=== PATIENT | female | born 1940 | race Caucasian/White ===

== ENCOUNTER → 2016-07-23 | Outpatient (CLI) | payer OTHER ==
[~2016-07-23] MED LIST: ASPI-515 PO; CYAN250013 PO; IMIP10TA2 PO; LISI-170 PO; METF500T4 PO; MULT-82 PO; OXYC-302 PO; SIMV20TA3 PO; SIMV5TAB5 PO
[2016-07-23 14:23] LABS: BLOOD UREA NITROGEN 28 mg/dL (7-18)
[2016-07-23 14:27] LABS: ASPARTATE AMINO TRANSFERASE 35 U/L (15-37)
== END | disposition home or self-care (01) ==
LOC: STAR 12:48
PROVIDERS: ATTEND Orthopaedic Surgery
DX: Z01.810 Encounter for preprocedural cardiovascular examination (principal); S09.8XXA Other specified injuries of head, initial encounter; X58.XXXA Exposure to other specified factors, initial encounter; Y93.89 Activity, other specified; Y92.89 Other specified places as the place of occurrence of the external cause; Y99.8 Other external cause status
CPT/HCPCS: 36415; 80053; 93005

== ENCOUNTER 2016-07-27 13:30 | Observation (INO) | payer OTHER ==
[~2016-07-27] VITALS: Ht 170.2 cm; Wt 108.0 kg
[2016-07-27] MEDS ORDERED: FENTANYL PF 100 MCG/2ML ONE (14:15)
[2016-07-27] MEDS ORDERED: ROPIvacaine/PF 0.5%, 20 ML ONE (15:07)
[2016-07-27] MEDS ORDERED: DEXAMETHASONE 4 MG/ML, 1ML ONE (15:45)
[2016-07-27] MEDS ORDERED: PROPOFOL 10 MG/ML, 20ML ONE (15:45)
[2016-07-27] MEDS ORDERED: ONDANSETRON 2MG/ML, 2ML ONE (15:45)
[2016-07-27] MEDS ORDERED: CEFAZOLIN 1,000 MG ONE (15:45)
[2016-07-27] MEDS ORDERED: PHENYLEPHRINE 10 MG/ML ONE (15:45)
[2016-07-27] MEDS ORDERED: FENTANYL PF 100 MCG/2ML IV PRN (18:30)
[2016-07-27] MEDS ORDERED: OXYcodone 5 MG/5 ML ORAL.SOL UDC PO PRN (18:30)
[2016-07-27] MEDS ORDERED: ACETAMINOPHEN 325 MG TABLET PO PRN (18:30)
[2016-07-27] MEDS ORDERED: HYDROmorphone 1 MG/ML, 1ML IV PRN (18:30)
[2016-07-27] MEDS ORDERED: PROMETHAZINE 25 MG/ML, 1ML IV PRN (18:30)
[2016-07-27] MEDS ORDERED: METOPROLOL 1 MG/ML, 5ML IV PRN (18:30)
[2016-07-27] MEDS ORDERED: hydrALAzine 20 MG/ML, 1ML IV PRN (18:30)
[2016-07-27 21:30] VITALS: BP 152/65
[2016-07-27 22:00] VITALS: BP 152/65
[2016-07-27] MEDS ORDERED: LISINOPRIL 20 MG TABLET PO SCH (22:21)
[2016-07-27] MEDS ORDERED: SIMVASTATIN 20 MG TABLET PO SCH (22:22)
[2016-07-27] MEDS ORDERED: IMIPRAMINE MC SCH (22:30)
[2016-07-27] MEDS ORDERED: OXYcodone/APAP 5/325MG TABLET PO PRN (22:30)
[2016-07-27] MEDS ORDERED: METFORMIN MC SCH (22:30)
[2016-07-27] MEDS ORDERED: CYANOCOBALAMIN MC SCH (22:30)
[2016-07-27] MEDS ORDERED: KETOROLAC 30 MG/1 ML IV SCH (22:30)
[2016-07-27] MEDS ORDERED: PROMETHAZINE 25 MG/ML, 1ML IM PRN (22:30)
[2016-07-27] MEDS ORDERED: morphine SULFATE 10 MG/ML, 1ML IV PRN (22:30)
[2016-07-27] MEDS ORDERED: ONDANSETRON 2MG/ML, 2ML IV PRN (22:30)
[2016-07-28] VITALS: BP 158/70
[2016-07-28] MEDS ORDERED: MULTIVITAMIN 1 TABLET PO SCH (09:00)
[2016-07-29] MEDS ORDERED: ASPIRIN 81 MG TABLET EC PO SCH (06:00)
== END 2016-07-27 23:45 | disposition home or self-care (01) ==
LOC: OUT 13:30 → 4NOR 21:34 → OUT 21:44 → 4NOR 21:44
PROVIDERS: ADMIT Orthopaedic Surgery; ATTEND Orthopaedic Surgery
DX: S52.572A Other intraarticular fracture of lower end of left radius, initial encounter for closed fracture (principal); S63.512A Sprain of carpal joint of left wrist, initial encounter; W18.30XA Fall on same level, unspecified, initial encounter; Y93.89 Activity, other specified; Y92.89 Other specified places as the place of occurrence of the external cause; Y99.8 Other external cause status
CPT/HCPCS: 25609; 73100; 76001; 96374; C1713; G0378; J0690; J1100; J1885; J2370; J2405; J2704; J2795; J3010

== ENCOUNTER → 2017-02-25 | Outpatient (CLI) | payer OTHER ==
[~2017-02-25] MED LIST changes: +ALEN70TA5 PO; +FLUO20CA8 PO; +IMIP50TA3 PO; +MULT-224 PO; -MULT-82 PO
[2017-02-25 11:23] LABS: ASPARTATE AMINO TRANSFERASE 28 U/L (15-37); BLOOD UREA NITROGEN 32 mg/dL (7-18)
== END | disposition home or self-care (01) ==
LOC: STAR 09:48
PROVIDERS: ATTEND Orthopaedic Surgery
DX: Z01.818 Encounter for other preprocedural examination (principal); T84.498D Other mechanical complication of other internal orthopedic devices, implants and grafts, subsequent encounter; S52.592D Other fractures of lower end of left radius, subsequent encounter for closed fracture with routine healing; X58.XXXD Exposure to other specified factors, subsequent encounter
CPT/HCPCS: 36415; 80053; 93005

== ENCOUNTER 2017-03-08 06:10 | Day surgery (SDC) | payer OTHER ==
[2017-02-25 10:19] VITALS: BP 109/71
[~2017-03-08] VITALS: Ht 170.2 cm; Wt 105.6 kg
[2017-03-08] MEDS ORDERED: LACTATED RINGERS 1,000 ML IV SCH (06:26)
[2017-03-08 06:27] VITALS: BP 109/71
[2017-03-08] MEDS ORDERED: LIDOCAINE 1%, 2ML SQ PRN (06:30)
[2017-03-08] MEDS ORDERED: BUPIVACAINE/PF 0.5% ONE (06:53)
[2017-03-08] MEDS ORDERED: MIDAZOLAM 1 MG/ML, 2ML ONE (07:21)
[2017-03-08] MEDS ORDERED: FENTANYL PF 100 MCG/2ML ONE (07:21)
[2017-03-08] MEDS ORDERED: PROPOFOL 10 MG/ML, 20ML ONE (07:22)
[2017-03-08] MEDS ORDERED: PHENYLEPHRINE 10 MG/ML ONE (07:23)
[2017-03-08] MEDS ORDERED: CEFAZOLIN 1,000 MG ONE ×2 (07:24)
[2017-03-08] MEDS ORDERED: DEXAMETHASONE 4 MG/ML, 5ML ONE (07:40)
[2017-03-08] MEDS ORDERED: ONDANSETRON 2MG/ML, 2ML ONE (07:40)
[2017-03-08] MEDS ORDERED: HYDROmorphone 1 MG/ML, 1ML ONE (08:19)
[2017-03-08] MEDS ORDERED: PROMETHAZINE 25 MG/ML, 1ML IV PRN (09:00)
[2017-03-08] MEDS ORDERED: hydrALAzine 20 MG/ML, 1ML IV PRN (09:00)
[2017-03-08] MEDS ORDERED: HYDROmorphone 1 MG/ML, 1ML IV PRN (09:00)
[2017-03-08] MEDS ORDERED: LABETALOL 5MG/ML, 20ML IV PRN (09:00)
[2017-03-08] MEDS ORDERED: ACETAMINOPHEN 325 MG TABLET PO PRN (09:00)
[2017-03-08] MEDS ORDERED: ONDANSETRON 2MG/ML, 2ML IVPush PRN (09:00)
[2017-03-08] MEDS ORDERED: OXYcodone 5 MG/5 ML ORAL.SOL UDC PO PRN (09:00)
[2017-03-08] MEDS ORDERED: FENTANYL PF 100 MCG/2ML IV PRN (09:00)
[2017-03-08] MEDS ORDERED: MEPERIDINE/PF 25MG/0.5ML IVPush PRN (09:00)
[2017-03-08] MEDS ORDERED: OXYcodone 5 MG/5 ML ORAL.SOL UDC ONE (09:18)
[2017-03-08] MEDS ORDERED: ACETAMINOPHEN 650 MG/20.3 ML UDC ONE (09:18)
== END 2017-03-08 13:35 ==
LOC: OUT 06:10
PROVIDERS: ATTEND Orthopaedic Surgery
DX: S66.311A Strain of extensor muscle, fascia and tendon of left index finger at wrist and hand level, initial encounter (principal); I10 Essential (primary) hypertension; E78.5 Hyperlipidemia, unspecified; E11.9 Type 2 diabetes mellitus without complications; Z88.1 Allergy status to other antibiotic agents; X58.XXXA Exposure to other specified factors, initial encounter; Y93.89 Activity, other specified; Y92.89 Other specified places as the place of occurrence of the external cause; Y99.8 Other external cause status
CPT/HCPCS: 20680; 25301; 73100; 76000; 82962; J0690; J1100; J1170; J2250; J2370; J2405; J2704; J3010; J3490; J7120

== ENCOUNTER → 2017-09-01 | Outpatient (CLI) | payer OTHER | END | disposition home or self-care (01) | LOC: RAD 10:54 | PROVIDERS: ATTEND Family Medicine | DX: M25.551 Pain in right hip (principal) ==

== ENCOUNTER 2017-09-08 09:31 | Emergency (ER) | payer OTHER ==
[~2017-09-08] VITALS: Ht 170.2 cm; Wt 105.0 kg
[2017-09-08 09:42] VITALS: BP 122/71
[2017-09-08 10:00] LABS: BASOPHILS # (AUTO) 0.01 x10^3/uL (0-0.1); BASOPHILS % (AUTO) 0 % (0-1); EOSINOPHILS % (AUTO) 0 % (1-7); LYMPHOCYTES # (AUTO) 0.75 x10^3/uL (1-3.4); LYMPHOCYTES % (AUTO) 7 % (22-44); MD NO; MEAN CORPUSCULAR HEMOGLOBIN 32.8 pg (27.0-34.8); MEAN CORPUSCULAR HGB CONC 34.1 g/dL (32.4-35.8); MEAN CORPUSCULAR VOLUME 96.3 fL (80-100); MEAN PLATELET VOLUME 8.1 fL (7.4-10.4); MONOCYTES % (AUTO) 4 % (2-9); NEUTROPHILS # (AUTO) 10.13 x10^3/uL (1.8-6.8); NEUTROPHILS % (AUTO) 89 % (42-75); PLATELET COUNT 197 x10^3/uL (130-400); RED BLOOD COUNT 4.56 x10^6/uL (3.82-5.3); RED CELL DISTRIBUTION WIDTH 12.1 % (9.6-15.2)
[2017-09-08 10:08] LABS: ALBUMIN 3.5 g/dL (3.4-5.0); ANION GAP 9 mmol/L (5-15); CALCIUM 9.1 mg/dL (8.5-10.1); CHLORIDE 99 mmol/L (98-107)
[2017-09-08 10:23] LABS: ALANINE AMINOTRANSFERASE 39 U/L (12-78); ALKALINE PHOSPHATASE 75 U/L (45-117); BILIRUBIN,TOTAL 0.6 mg/dL (0.2-1.0); CREATINE KINASE, TOTAL 1089 U/L (26-192); CREATININE 1.48 mg/dL (0.55-1.02); TOTAL PROTEIN 7.6 g/dL (6.4-8.2)
== END 2017-09-08 12:30 | disposition home or self-care (01) ==
LOC: ED 12:26
DX: R53.1 Weakness (principal); I12.9 Hypertensive chronic kidney disease with stage 1 through stage 4 chronic kidney disease, or unspecified chronic kidney disease; N18.2 Chronic kidney disease, stage 2 (mild); E11.22 Type 2 diabetes mellitus with diabetic chronic kidney disease; W06.XXXA Fall from bed, initial encounter; Y93.89 Activity, other specified; Y92.89 Other specified places as the place of occurrence of the external cause; Y99.8 Other external cause status
CPT/HCPCS: 36415; 71045; 80053; 82550; 85025; 93005; 99285

== ENCOUNTER 2017-09-20 17:29 | Inpatient (IN) | payer OTHER ==
[~2017-09-20] VITALS: Ht 170.2 cm; Wt 113.5 kg
[2017-09-20] MEDS ORDERED: VANCOMYCIN PER PHARMACY MC PRN ×2 (18:30→23:00)
[2017-09-20] MEDS ORDERED: AMPICILLIN/SULBACTAM 3 GM in SODIUM CHLORIDE 0.9% 100 ML IV ONE (18:30)
[2017-09-20 18:47] LABS: BASOPHILS # (AUTO) 0.04 x10^3/uL (0-0.1); BASOPHILS % (AUTO) 0 % (0-1); EOSINOPHILS # (AUTO) 0.34 x10^3/uL (0-0.4); EOSINOPHILS % (AUTO) 3 % (1-7); LYMPHOCYTES # (AUTO) 2.28 x10^3/uL (1-3.4); LYMPHOCYTES % (AUTO) 21 % (22-44); MD NO; MEAN CORPUSCULAR HGB CONC 33.7 g/dL (32.4-35.8); MEAN PLATELET VOLUME 7.6 fL (7.4-10.4); MONOCYTES # (AUTO) 0.83 x10^3/uL (0.2-0.8); MONOCYTES % (AUTO) 8 % (2-9); NEUTROPHILS # (AUTO) 7.16 x10^3/uL (1.8-6.8); NEUTROPHILS % (AUTO) 67 % (42-75); PLATELET COUNT 311 x10^3/uL (130-400); RED BLOOD COUNT 4.48 x10^6/uL (3.82-5.3); RED CELL DISTRIBUTION WIDTH 12.2 % (9.6-15.2)
[2017-09-20] MEDS ORDERED: VANCOMYCIN 2,000 MG in SODIUM CHLORIDE 0.9% 500 ML IV ONE (19:00)
[2017-09-20] MEDS ORDERED: SODIUM CHLORIDE FLUSH 10ML SYR IVF ONE (19:00)
[2017-09-20 19:07] LABS: ALBUMIN 3.2 g/dL (3.4-5.0); ANION GAP 6 mmol/L (5-15); CALCIUM 9.8 mg/dL (8.5-10.1); CHLORIDE 102 mmol/L (98-107)
[2017-09-20 19:10] LABS: ALANINE AMINOTRANSFERASE 37 U/L (12-78); CREATININE 1.18 mg/dL (0.55-1.02)
[2017-09-20 19:12] LABS: ALKALINE PHOSPHATASE 93 U/L (45-117); BILIRUBIN,TOTAL 0.3 mg/dL (0.2-1.0)
[2017-09-20 21:30] VITALS: BP 130/80
[2017-09-20] MEDS ORDERED: hydrALAzine 20 MG/ML, 1ML IVPush PRN (22:30)
[2017-09-20] MEDS ORDERED: POLYETHYLENE GLYCOL 17 GM PACKET PO PRN (22:30)
[2017-09-20] MEDS ORDERED: ONDANSETRON ODT 4 MG PO PRN (22:30)
[2017-09-20] MEDS ORDERED: morphine SULFATE 10 MG/ML, 1ML IVPush PRN (22:30)
[2017-09-20] MEDS ORDERED: DOCUSATE 100 MG CAPSULE PO PRN (22:30)
[2017-09-20] MEDS ORDERED: OXYcodone IR 5MG TABLET PO PRN (22:30)
[2017-09-20] MEDS ORDERED: ONDANSETRON 2MG/ML, 2ML IVPush PRN (22:30)
[2017-09-20] MEDS ORDERED: BISACODYL 10 MG SUPP PR PRN (22:30)
[2017-09-20] MEDS ORDERED: PROMETHAZINE 25 MG/ML, 1ML IM PRN (22:30)
[2017-09-20] MEDS ORDERED: ACETAMINOPHEN 325 MG TABLET PO PRN (22:30)
[2017-09-20] MEDS ORDERED: PHARMACOKINETIC CONSULTATION MC ONE (23:00)
[2017-09-20] MEDS ORDERED: PHARMACOKINETIC MONITORING MC PRN (23:00)
[2017-09-20] MEDS ORDERED: SODIUM CHLORIDE 0.9% 1,000 ML IV SCH (23:00)
[2017-09-20 23:16] LABS: FREE T4 (FREE THYROXINE) 1.17 ng/dL (0.76-1.46); THYROID STIMULATING HORMONE 1.73 mIU/L (0.358-3.740)
[2017-09-20 23:21] LABS: HEMOGLOBIN A1C 6.8 % (4.2-6.3)
[2017-09-20] MEDS: HEPARIN 5,000 UNITS/ML, 1ML SQ SCH (23:54)
[2017-09-21] MEDS: AMPICILLIN/SULBACTAM 3 GM in SODIUM CHLORIDE 0.9% 100 ML IV SCH ×4 (02:05→20:20)
[2017-09-21 02:17] VITALS: BP 145/71
[2017-09-21 05:02] LABS: BASOPHILS # (AUTO) 0.02 x10^3/uL (0-0.1); BASOPHILS % (AUTO) 0 % (0-1); EOSINOPHILS # (AUTO) 0.32 x10^3/uL (0-0.4); EOSINOPHILS % (AUTO) 3 % (1-7); LYMPHOCYTES # (AUTO) 1.74 x10^3/uL (1-3.4); LYMPHOCYTES % (AUTO) 18 % (22-44); MD NO; MEAN CORPUSCULAR HEMOGLOBIN 32.3 pg (27.0-34.8); MEAN CORPUSCULAR HGB CONC 33.3 g/dL (32.4-35.8); MEAN CORPUSCULAR VOLUME 96.9 fL (80-100); MEAN PLATELET VOLUME 7.6 fL (7.4-10.4); MONOCYTES # (AUTO) 0.67 x10^3/uL (0.2-0.8); MONOCYTES % (AUTO) 7 % (2-9); NEUTROPHILS # (AUTO) 6.73 x10^3/uL (1.8-6.8); NEUTROPHILS % (AUTO) 71 % (42-75); PLATELET COUNT 287 x10^3/uL (130-400); RED BLOOD COUNT 4.12 x10^6/uL (3.82-5.3); RED CELL DISTRIBUTION WIDTH 11.8 % (9.6-15.2)
[2017-09-21 05:12] LABS: ALBUMIN 2.7 g/dL (3.4-5.0); ANION GAP 7 mmol/L (5-15); CALCIUM 8.7 mg/dL (8.5-10.1); CHLORIDE 104 mmol/L (98-107)
[2017-09-21 05:16] LABS: ALANINE AMINOTRANSFERASE 31 U/L (12-78); ALKALINE PHOSPHATASE 85 U/L (45-117); BILIRUBIN,TOTAL 0.3 mg/dL (0.2-1.0); CHOL/HDL RATIO 2.4; CHOLESTEROL, TOTAL 101 mg/dL (140-239); CREATININE 1.03 mg/dL (0.55-1.02); HDL CHOL % 42 % (28-40); HDL CHOLESTEROL (DIRECT) 42 mg/dL (40-60); LDL CHOLESTEROL,CALCULATED 32 mg/dL (54-169); LDL/HDL RATIO 0.8 (0.5-3.0); TOTAL PROTEIN 6.9 g/dL (6.4-8.2); TRIGLYCERIDES 135 mg/dL (50-200); VLDL CHOLESTEROL 27 mg/dL (0-25)
[2017-09-21] MEDS: ALENDRONATE 70 MG TABLET PO SCH (06:24)
[2017-09-21] MEDS: INSULIN LISPRO 100 UNITS/ML, PEN SQ-INSULIN SCH ×4 (06:27→20:25)
[2017-09-21 07:23] VITALS: BP 163/80
[2017-09-21 08:06] LABS: MICROSCOPIC NOT IND
[2017-09-21 08:09] LABS: CULTURE INDICATED? NO
[2017-09-21] MEDS: LISINOPRIL 20 MG TABLET PO SCH ×2 (09:29→20:21)
[2017-09-21] MEDS: FLUOXETINE HCL 20 MG CAPSULE PO SCH (09:29)
[2017-09-21] MEDS: HEPARIN 5,000 UNITS/ML, 1ML SQ SCH ×2 (09:29→16:25)
[2017-09-21] MEDS: ASPIRIN 81 MG TABLET EC PO SCH (09:29)
[2017-09-21] MEDS: MULTIVITAMIN 1 TABLET PO SCH (09:29)
[2017-09-21] MEDS: IMIPRAMINE 25 MG TABLET PO SCH ×2 (11:41→20:21)
[2017-09-21 15:56] VITALS: BP 134/76
[2017-09-21] MEDS: VANCOMYCIN 2,000 MG in SODIUM CHLORIDE 0.9% 500 ML IV SCH (16:25)
[2017-09-21 18:50] VITALS: BP 123/77
[2017-09-21] MEDS: SIMVASTATIN 20 MG TABLET PO SCH (20:21)
[2017-09-22] MEDS: HEPARIN 5,000 UNITS/ML, 1ML SQ SCH ×3 (00:32→16:40)
[2017-09-22 01:01] VITALS: BP 151/91
[2017-09-22] MEDS: AMPICILLIN/SULBACTAM 3 GM in SODIUM CHLORIDE 0.9% 100 ML IV SCH ×4 (02:23→20:16)
[2017-09-22 05:24] LABS: BASOPHILS # (AUTO) 0.07 x10^3/uL (0-0.1); BASOPHILS % (AUTO) 1 % (0-1); EOSINOPHILS # (AUTO) 0.39 x10^3/uL (0-0.4); EOSINOPHILS % (AUTO) 5 % (1-7); LYMPHOCYTES # (AUTO) 1.84 x10^3/uL (1-3.4); LYMPHOCYTES % (AUTO) 21 % (22-44); MD NO; MEAN CORPUSCULAR HGB CONC 34.2 g/dL (32.4-35.8); MEAN CORPUSCULAR VOLUME 96.2 fL (80-100); MEAN PLATELET VOLUME 7.7 fL (7.4-10.4); MONOCYTES % (AUTO) 7 % (2-9); NEUTROPHILS # (AUTO) 5.79 x10^3/uL (1.8-6.8); NEUTROPHILS % (AUTO) 67 % (42-75); PLATELET COUNT 278 x10^3/uL (130-400); RED BLOOD COUNT 4.19 x10^6/uL (3.82-5.3)
[2017-09-22 05:32] LABS: ANION GAP 6 mmol/L (5-15); CALCIUM 9.5 mg/dL (8.5-10.1); CHLORIDE 107 mmol/L (98-107)
[2017-09-22 05:35] LABS: CREATININE 1.08 mg/dL (0.55-1.02)
[2017-09-22] MEDS: INSULIN LISPRO 100 UNITS/ML, PEN SQ-INSULIN SCH ×4 (06:59→20:22)
[2017-09-22] MEDS: ASPIRIN 81 MG TABLET EC PO SCH (07:46)
[2017-09-22] MEDS: MULTIVITAMIN 1 TABLET PO SCH (07:46)
[2017-09-22] MEDS: LISINOPRIL 20 MG TABLET PO SCH ×2 (07:47→20:17)
[2017-09-22] MEDS: FLUOXETINE HCL 20 MG CAPSULE PO SCH (07:47)
[2017-09-22] MEDS: IMIPRAMINE 25 MG TABLET PO SCH ×2 (07:47→20:16)
[2017-09-22 08:26] VITALS: BP 145/81
[2017-09-22 14:23] VITALS: BP 132/81
[2017-09-22] MEDS: VANCOMYCIN 2,000 MG in SODIUM CHLORIDE 0.9% 500 ML IV SCH (15:27)
[2017-09-22 15:42] LABS: HCT (SEDRATE) 40.3 % (34.6-47.8)
[2017-09-22] MEDS ORDERED: GADOBUTROL 10 MMOL/10 ML PFS ONE (17:40)
[2017-09-22] MEDS: SIMVASTATIN 20 MG TABLET PO SCH (20:16)
[2017-09-22 20:18] VITALS: BP 135/81
[2017-09-23] MEDS: HEPARIN 5,000 UNITS/ML, 1ML SQ SCH ×3 (01:06→16:28)
[2017-09-23 01:09] VITALS: BP 155/79
[2017-09-23] MEDS: AMPICILLIN/SULBACTAM 3 GM in SODIUM CHLORIDE 0.9% 100 ML IV SCH ×3 (02:09→14:04)
[2017-09-23 05:53] LABS: BASOPHILS # (AUTO) 0.05 x10^3/uL (0-0.1); BASOPHILS % (AUTO) 1 % (0-1); EOSINOPHILS # (AUTO) 0.41 x10^3/uL (0-0.4); EOSINOPHILS % (AUTO) 5 % (1-7); LYMPHOCYTES # (AUTO) 1.97 x10^3/uL (1-3.4); LYMPHOCYTES % (AUTO) 23 % (22-44); MD NO; MEAN CORPUSCULAR HEMOGLOBIN 32.6 pg (27.0-34.8); MEAN CORPUSCULAR HGB CONC 33.8 g/dL (32.4-35.8); MEAN CORPUSCULAR VOLUME 96.4 fL (80-100); MEAN PLATELET VOLUME 7.9 fL (7.4-10.4); MONOCYTES # (AUTO) 0.59 x10^3/uL (0.2-0.8); MONOCYTES % (AUTO) 7 % (2-9); NEUTROPHILS # (AUTO) 5.66 x10^3/uL (1.8-6.8); NEUTROPHILS % (AUTO) 65 % (42-75); PLATELET COUNT 286 x10^3/uL (130-400); RED BLOOD COUNT 4.09 x10^6/uL (3.82-5.3); RED CELL DISTRIBUTION WIDTH 11.7 % (9.6-15.2)
[2017-09-23 06:03] LABS: ANION GAP 7 mmol/L (5-15); CALCIUM 8.7 mg/dL (8.5-10.1); CHLORIDE 107 mmol/L (98-107)
[2017-09-23 06:06] LABS: CREATININE 0.88 mg/dL (0.55-1.02)
[2017-09-23] MEDS: INSULIN LISPRO 100 UNITS/ML, PEN SQ-INSULIN SCH ×4 (06:50→20:16)
[2017-09-23] MEDS: FLUOXETINE HCL 20 MG CAPSULE PO SCH (08:03)
[2017-09-23] MEDS: MULTIVITAMIN 1 TABLET PO SCH (08:03)
[2017-09-23] MEDS: ASPIRIN 81 MG TABLET EC PO SCH (08:03)
[2017-09-23] MEDS: LISINOPRIL 20 MG TABLET PO SCH ×2 (08:03→20:40)
[2017-09-23] MEDS: IMIPRAMINE 25 MG TABLET PO SCH ×2 (08:04→20:40)
[2017-09-23 08:15] VITALS: BP 128/74
[2017-09-23] MEDS ORDERED: MAGNESIUM SULFATE PMX 2GM/50ML 50 ML IV ONE (09:00)
[2017-09-23] MEDS: VANCOMYCIN 2,000 MG in SODIUM CHLORIDE 0.9% 500 ML IV SCH (15:01)
[2017-09-23 15:46] VITALS: BP 166/84
[2017-09-23] MEDS: PIPERACILLIN/TAZO/PMX 4.5GM 100 ML IV SCH (20:04)
[2017-09-23 20:35] VITALS: BP 161/76
[2017-09-23] MEDS: SIMVASTATIN 20 MG TABLET PO SCH (20:40)
[2017-09-24 03:15] VITALS: BP 154/75
[2017-09-24] MEDS: PIPERACILLIN/TAZO/PMX 4.5GM 100 ML IV SCH ×3 (04:12→19:56)
[2017-09-24] MEDS: HEPARIN 5,000 UNITS/ML, 1ML SQ SCH ×3 (04:12→19:55)
[2017-09-24] MEDS: INSULIN LISPRO 100 UNITS/ML, PEN SQ-INSULIN SCH ×2 (07:00→11:00)
[2017-09-24 07:04] VITALS: BP 159/80
[2017-09-24] MEDS: IMIPRAMINE 25 MG TABLET PO SCH ×2 (07:58→19:56)
[2017-09-24 08:00] VITALS: BP 149/83
[2017-09-24] MEDS: ASPIRIN 81 MG TABLET EC PO SCH (08:39)
[2017-09-24] MEDS: MULTIVITAMIN 1 TABLET PO SCH (08:39)
[2017-09-24] MEDS: FLUOXETINE HCL 20 MG CAPSULE PO SCH (08:40)
[2017-09-24] MEDS: LISINOPRIL 20 MG TABLET PO SCH ×2 (08:40→19:56)
[2017-09-24 13:45] VITALS: BP 131/77
[2017-09-24] MEDS ORDERED: POLYETHYLENE GLYCOL 17 GM PACKET PO PRN (15:00)
[2017-09-24] MEDS ORDERED: MORPHINE SULFATE 4 MG/ML, 1ML IVPush PRN (15:00)
[2017-09-24] MEDS ORDERED: BISACODYL 10 MG SUPP PR PRN (15:00)
[2017-09-24] MEDS ORDERED: ACETAMINOPHEN 325 MG TABLET PO PRN (15:00)
[2017-09-24] MEDS ORDERED: ONDANSETRON ODT 4 MG PO PRN (15:00)
[2017-09-24] MEDS ORDERED: hydrALAzine 20 MG/ML, 1ML IVPush PRN (15:00)
[2017-09-24] MEDS ORDERED: OXYcodone IR 5MG TABLET PO PRN (15:00)
[2017-09-24] MEDS ORDERED: ONDANSETRON 2MG/ML, 2ML IVPush PRN (15:00)
[2017-09-24] MEDS ORDERED: PROMETHAZINE 25 MG/ML, 1ML IM PRN (15:00)
[2017-09-24] MEDS ORDERED: DOCUSATE 50 MG/5 ML, 10ML UDC PO PRN (15:00)
[2017-09-24] MEDS ORDERED: GADOBUTROL 10 MMOL/10 ML PFS ONE (15:11)
[2017-09-24] MEDS ORDERED: MAGNESIUM SULFATE PMX 2GM/50ML 50 ML IV ONE (15:30)
[2017-09-24] MEDS ORDERED: MAGNESIUM SULF. PMX 20GM/500ML 50 ML IV ONE ×2 (15:30)
[2017-09-24] MEDS ORDERED: MAGNESIUM SULF. PMX 20GM/500ML 100 ML IV ONE (15:30)
[2017-09-24] MEDS: VANCOMYCIN 2,000 MG in SODIUM CHLORIDE 0.9% 500 ML IV SCH (16:01)
[2017-09-24] MEDS ORDERED: MAGNESIUM SULFATE PMX 2GM/50ML 50 ML IVPB ONE (19:30)
[2017-09-24] MEDS: SIMVASTATIN 20 MG TABLET PO SCH (19:56)
[2017-09-24 20:08] VITALS: BP 165/91
[2017-09-25 00:29] VITALS: BP 152/67
[2017-09-25] MEDS: PIPERACILLIN/TAZO/PMX 4.5GM 100 ML IV SCH (04:16)
[2017-09-25] MEDS: HEPARIN 5,000 UNITS/ML, 1ML SQ SCH ×3 (04:17→21:18)
[2017-09-25 04:58] LABS: BASOPHILS # (AUTO) 0.07 x10^3/uL (0-0.1); BASOPHILS % (AUTO) 1 % (0-1); EOSINOPHILS # (AUTO) 0.33 x10^3/uL (0-0.4); EOSINOPHILS % (AUTO) 4 % (1-7); LYMPHOCYTES # (AUTO) 1.77 x10^3/uL (1-3.4); LYMPHOCYTES % (AUTO) 22 % (22-44); MD NO; MEAN CORPUSCULAR HEMOGLOBIN 32.4 pg (27.0-34.8); MEAN CORPUSCULAR HGB CONC 33.6 g/dL (32.4-35.8); MEAN CORPUSCULAR VOLUME 96.5 fL (80-100); MEAN PLATELET VOLUME 7.7 fL (7.4-10.4); MONOCYTES # (AUTO) 0.59 x10^3/uL (0.2-0.8); MONOCYTES % (AUTO) 7 % (2-9); NEUTROPHILS # (AUTO) 5.38 x10^3/uL (1.8-6.8); NEUTROPHILS % (AUTO) 66 % (42-75); PLATELET COUNT 272 x10^3/uL (130-400); RED BLOOD COUNT 4.02 x10^6/uL (3.82-5.3); RED CELL DISTRIBUTION WIDTH 12.2 % (9.6-15.2)
[2017-09-25 05:05] LABS: CALCIUM 8.9 mg/dL (8.5-10.1); CHLORIDE 106 mmol/L (98-107)
[2017-09-25 05:09] LABS: ALBUMIN 2.7 g/dL (3.4-5.0); ANION GAP 7 mmol/L (5-15); CREATININE 1.07 mg/dL (0.55-1.02)
[2017-09-25 08:15] VITALS: BP 155/83
[2017-09-25] MEDS: LISINOPRIL 20 MG TABLET PO SCH ×2 (08:18→21:18)
[2017-09-25] MEDS: IMIPRAMINE 25 MG TABLET PO SCH ×2 (08:18→21:18)
[2017-09-25] MEDS: MULTIVITAMIN 1 TABLET PO SCH (08:18)
[2017-09-25] MEDS: FLUOXETINE HCL 20 MG CAPSULE PO SCH (08:18)
[2017-09-25] MEDS: ASPIRIN 81 MG TABLET EC PO SCH (08:18)
[2017-09-25] MEDS: ERTAPENEM 1 GM in SODIUM CHLORIDE 0.9% 50 ML IV SCH (11:49)
[2017-09-25 15:00] VITALS: BP 142/73
[2017-09-25 19:31] VITALS: BP 122/73
[2017-09-25] MEDS: SIMVASTATIN 20 MG TABLET PO SCH (21:17)
[2017-09-26 02:15] VITALS: BP 145/81
[2017-09-26] MEDS: HEPARIN 5,000 UNITS/ML, 1ML SQ SCH ×3 (04:26→21:38)
[2017-09-26 05:39] LABS: CHLORIDE 105 mmol/L (98-107)
[2017-09-26 05:55] LABS: ALANINE AMINOTRANSFERASE 90 U/L (12-78); ALBUMIN 2.8 g/dL (3.4-5.0); ALKALINE PHOSPHATASE 88 U/L (45-117); ANION GAP 9 mmol/L (5-15); BILIRUBIN,TOTAL 0.3 mg/dL (0.2-1.0); CREATININE 0.89 mg/dL (0.55-1.02); TOTAL PROTEIN 6.9 g/dL (6.4-8.2)
[2017-09-26 06:00] LABS: BASOPHILS # (AUTO) 0.06 x10^3/uL (0-0.1); BASOPHILS % (AUTO) 1 % (0-1); EOSINOPHILS % (AUTO) 4 % (1-7); LYMPHOCYTES # (AUTO) 1.66 x10^3/uL (1-3.4); LYMPHOCYTES % (AUTO) 20 % (22-44); MD NO; MEAN CORPUSCULAR HEMOGLOBIN 33.1 pg (27.0-34.8); MEAN CORPUSCULAR HGB CONC 34.1 g/dL (32.4-35.8); MEAN CORPUSCULAR VOLUME 97.1 fL (80-100); MEAN PLATELET VOLUME 8.2 fL (7.4-10.4); MONOCYTES # (AUTO) 0.52 x10^3/uL (0.2-0.8); MONOCYTES % (AUTO) 6 % (2-9); NEUTROPHILS # (AUTO) 5.85 x10^3/uL (1.8-6.8); NEUTROPHILS % (AUTO) 70 % (42-75); PLATELET COUNT 254 x10^3/uL (130-400); RED BLOOD COUNT 3.98 x10^6/uL (3.82-5.3)
[2017-09-26 08:20] VITALS: BP 146/82
[2017-09-26] MEDS ORDERED: LIDOCAINE-MPF 1%, 2ML ONE (09:04)
[2017-09-26] MEDS: ASPIRIN 81 MG TABLET EC PO SCH (09:41)
[2017-09-26] MEDS: MULTIVITAMIN 1 TABLET PO SCH (09:41)
[2017-09-26] MEDS: FLUOXETINE HCL 20 MG CAPSULE PO SCH (09:42)
[2017-09-26] MEDS: IMIPRAMINE 25 MG TABLET PO SCH ×2 (09:42→21:39)
[2017-09-26] MEDS: LISINOPRIL 20 MG TABLET PO SCH ×2 (09:42→21:38)
[2017-09-26] MEDS: ERTAPENEM 1 GM in SODIUM CHLORIDE 0.9% 50 ML IV SCH (11:20)
[2017-09-26 13:30] VITALS: BP 144/82
[2017-09-26 19:51] VITALS: BP 120/74
[2017-09-26] MEDS: SIMVASTATIN 20 MG TABLET PO SCH (21:38)
[2017-09-27 01:28] VITALS: BP 163/84
[2017-09-27] MEDS: HEPARIN 5,000 UNITS/ML, 1ML SQ SCH ×3 (05:02→21:21)
[2017-09-27 06:15] LABS: ALANINE AMINOTRANSFERASE 79 U/L (12-78); ALBUMIN 2.9 g/dL (3.4-5.0); ANION GAP 7 mmol/L (5-15); CALCIUM 9.6 mg/dL (8.5-10.1); CHLORIDE 104 mmol/L (98-107); CREATININE 1.02 mg/dL (0.55-1.02)
[2017-09-27 06:17] LABS: ALKALINE PHOSPHATASE 81 U/L (45-117); BILIRUBIN,TOTAL 0.4 mg/dL (0.2-1.0); TOTAL PROTEIN 7.1 g/dL (6.4-8.2)
[2017-09-27 07:40] VITALS: BP 146/82
[2017-09-27] MEDS: IMIPRAMINE 25 MG TABLET PO SCH ×2 (09:00→20:43)
[2017-09-27] MEDS: MULTIVITAMIN 1 TABLET PO SCH (10:34)
[2017-09-27] MEDS: ASPIRIN 81 MG TABLET EC PO SCH (10:35)
[2017-09-27] MEDS: LISINOPRIL 20 MG TABLET PO SCH ×2 (10:35→21:00)
[2017-09-27] MEDS: FLUOXETINE HCL 20 MG CAPSULE PO SCH (10:35)
[2017-09-27] MEDS: ERTAPENEM 1 GM in SODIUM CHLORIDE 0.9% 50 ML IV SCH (11:43)
[2017-09-27 13:59] VITALS: BP 92/60
[2017-09-27 20:39] VITALS: BP 134/81
[2017-09-27] MEDS: SIMVASTATIN 20 MG TABLET PO SCH (20:43)
[2017-09-28 01:35] VITALS: BP 129/73
[2017-09-28] MEDS: HEPARIN 5,000 UNITS/ML, 1ML SQ SCH ×2 (06:29→14:00)
[2017-09-28] MEDS: ALENDRONATE 70 MG TABLET PO SCH (06:37)
[2017-09-28] MEDS ORDERED: ONDA4TAB13 PO (06:57)
[2017-09-28] MEDS ORDERED: ACET325T14 PO (06:57)
[2017-09-28] MEDS ORDERED: ERTA1VIA IV (06:59)
[2017-09-28 07:00] VITALS: BP 141/80
[2017-09-28] MEDS: IMIPRAMINE 25 MG TABLET PO SCH (09:00)
[2017-09-28] MEDS: LISINOPRIL 20 MG TABLET PO SCH (09:12)
[2017-09-28] MEDS: FLUOXETINE HCL 20 MG CAPSULE PO SCH (09:12)
[2017-09-28] MEDS: MULTIVITAMIN 1 TABLET PO SCH (09:12)
[2017-09-28] MEDS: ASPIRIN 81 MG TABLET EC PO SCH (09:12)
[2017-09-28] MEDS: ERTAPENEM 1 GM in SODIUM CHLORIDE 0.9% 50 ML IV SCH (11:33)
[2017-09-28 14:24] VITALS: BP 98/66
== END 2017-09-28 17:11 | disposition home or self-care (01) | DRG 682 ==
LOC: ED 20:00 → 4NOR 21:22 → DCLOUNGE 09-28 16:58
PROVIDERS: ADMIT Internal Medicine; ATTEND Internal Medicine
PROC: 02HV33Z Insertion of Infusion Device into Superior Vena Cava, Percutaneous Approach (ICD-10-PCS; principal; 2017-09-26)
PROC: B548ZZA Ultrasonography of Superior Vena Cava, Guidance (ICD-10-PCS; 2017-09-26)
PROC: B5181ZA Fluoroscopy of Superior Vena Cava using Low Osmolar Contrast, Guidance (ICD-10-PCS; 2017-09-26)
DX: N17.0 Acute kidney failure with tubular necrosis (principal); E43 Unspecified severe protein-calorie malnutrition; L03.116 Cellulitis of left lower limb; E66.01 Morbid (severe) obesity due to excess calories; E83.42 Hypomagnesemia; E11.9 Type 2 diabetes mellitus without complications; D16.9 Benign neoplasm of bone and articular cartilage, unspecified; B95.61 Methicillin susceptible Staphylococcus aureus infection as the cause of diseases classified elsewhere; M65.88 Other synovitis and tenosynovitis, other site; E78.5 Hyperlipidemia, unspecified; F32.9 Major depressive disorder, single episode, unspecified; I10 Essential (primary) hypertension; M65.879 Other synovitis and tenosynovitis, unspecified ankle and foot; M81.0 Age-related osteoporosis without current pathological fracture; Z88.2 Allergy status to sulfonamides; Z79.82 Long term (current) use of aspirin; Z79.899 Other long term (current) drug therapy; Z68.39 Body mass index [BMI] 39.0-39.9, adult
CPT/HCPCS: 36415; 36569; 76937; 77001; 80048; 80053; 80061; 80202; 81003; 82040; 82962; 83036; 83605; 83735; 84100; 84145; 84439; 84443; 85025; 85651; 86140; 87040; 87070; 87077; 87186; 87205; 93922; 93970; 99285; A9585; J0295; J1335; J1644; J2543; J3370; J3490; C1751; J3475; J7030; J7040

== ENCOUNTER → 2017-10-05 | Outpatient (CLI) | payer OTHER ==
[~2017-10-05] MED LIST changes: +ACET325T14 PO; +ERTA1VIA IV; +ONDA4TAB13 PO
== END | disposition home or self-care (01) ==
LOC: WOUND 12:49
PROVIDERS: ATTEND Internal Medicine
DX: E11.621 Type 2 diabetes mellitus with foot ulcer (principal); L97.522 Non-pressure chronic ulcer of other part of left foot with fat layer exposed; E78.00 Pure hypercholesterolemia, unspecified; M81.0 Age-related osteoporosis without current pathological fracture; E78.5 Hyperlipidemia, unspecified; F32.9 Major depressive disorder, single episode, unspecified; E66.01 Morbid (severe) obesity due to excess calories; E11.22 Type 2 diabetes mellitus with diabetic chronic kidney disease; I12.9 Hypertensive chronic kidney disease with stage 1 through stage 4 chronic kidney disease, or unspecified chronic kidney disease; N18.2 Chronic kidney disease, stage 2 (mild); Z68.39 Body mass index [BMI] 39.0-39.9, adult
CPT/HCPCS: 97597; G0463; WOU0463

== ENCOUNTER → 2017-10-10 | Outpatient (CLI) | payer OTHER | END | disposition home or self-care (01) | LOC: WOUND 13:27 | PROVIDERS: ATTEND Internal Medicine | DX: E11.621 Type 2 diabetes mellitus with foot ulcer (principal); L97.522 Non-pressure chronic ulcer of other part of left foot with fat layer exposed; E78.5 Hyperlipidemia, unspecified; F32.9 Major depressive disorder, single episode, unspecified; M81.0 Age-related osteoporosis without current pathological fracture; E11.22 Type 2 diabetes mellitus with diabetic chronic kidney disease; I12.9 Hypertensive chronic kidney disease with stage 1 through stage 4 chronic kidney disease, or unspecified chronic kidney disease; N18.2 Chronic kidney disease, stage 2 (mild); E66.01 Morbid (severe) obesity due to excess calories; E78.00 Pure hypercholesterolemia, unspecified; M16.11 Unilateral primary osteoarthritis, right hip; Z68.39 Body mass index [BMI] 39.0-39.9, adult | CPT/HCPCS: G0463; WOU0463 ==

== ENCOUNTER → 2017-10-12 | Outpatient (CLI) | payer OTHER | END | disposition home or self-care (01) | LOC: RAD 10:41 | PROVIDERS: ATTEND Family Medicine | DX: M79.605 Pain in left leg (principal); M79.89 Other specified soft tissue disorders; R60.0 Localized edema ==

== ENCOUNTER → 2017-10-17 | Outpatient (CLI) | payer OTHER | END | disposition home or self-care (01) | LOC: WOUND 11:00 | PROVIDERS: ATTEND Internal Medicine | DX: E11.621 Type 2 diabetes mellitus with foot ulcer (principal); L97.522 Non-pressure chronic ulcer of other part of left foot with fat layer exposed; M81.0 Age-related osteoporosis without current pathological fracture; E78.5 Hyperlipidemia, unspecified; E11.22 Type 2 diabetes mellitus with diabetic chronic kidney disease; I12.9 Hypertensive chronic kidney disease with stage 1 through stage 4 chronic kidney disease, or unspecified chronic kidney disease; N18.2 Chronic kidney disease, stage 2 (mild); F32.9 Major depressive disorder, single episode, unspecified; E66.01 Morbid (severe) obesity due to excess calories; E78.00 Pure hypercholesterolemia, unspecified; M16.11 Unilateral primary osteoarthritis, right hip; Z68.39 Body mass index [BMI] 39.0-39.9, adult | CPT/HCPCS: 99212 ==

== ENCOUNTER → 2017-11-15 | Outpatient (CLI) | payer OTHER ==
[~2017-11-15] MED LIST changes: -METF500T4 PO; +METF500T5 PO
== END | disposition home or self-care (01) ==
LOC: CVU 13:43
PROVIDERS: ATTEND Family Medicine
DX: I08.2 Rheumatic disorders of both aortic and tricuspid valves (principal); I65.23 Occlusion and stenosis of bilateral carotid arteries; I10 Essential (primary) hypertension; E11.9 Type 2 diabetes mellitus without complications; R01.1 Cardiac murmur, unspecified; R55 Syncope and collapse; E78.5 Hyperlipidemia, unspecified
CPT/HCPCS: 93306; 93880

== ENCOUNTER → 2018-02-16 | Outpatient (CLI) | payer OTHER ==
[~2018-02-16] MED LIST changes: +METF500T17 PO; -METF500T5 PO
== END | disposition home or self-care (01) ==
LOC: RAD 13:42
PROVIDERS: ATTEND Family Medicine
DX: M51.37 Other intervertebral disc degeneration, lumbosacral region (principal); M41.86 Other forms of scoliosis, lumbar region
CPT/HCPCS: 72110; 73523

== ENCOUNTER 2018-05-10 05:18 | Inpatient (IN) | payer OTHER ==
[~2018-05-10] VITALS: Ht 165.1 cm; Wt 103.6 kg
--- NOTE | 2018-05-10 06:31 | NUR ---
PT BACK FROMX-RAY AWAITING READ AND ERP RECHECK.
--- NOTE | 2018-05-10 06:51 | NUR ---
REPORT FROM JOJO CHEN
--- NOTE | 2018-05-10 07:46 | NUR ---
ATTEMPTED APPLICATION OF KNEE IMMOBILIZER. PT DID NOT TOLERATE WELL. PT REQUESTED PAIN MEDICATION. WILL ATTEMPT IMMOBILIZER APPLICATION AGAIN AFTER PAIN MEDICATION.
[2018-05-10] MEDS ORDERED: OXYcodone/APAP 5/325MG TABLET ONE (07:58)
[2018-05-10] MEDS ORDERED: OXYcodone/APAP 5/325MG TABLET PO ONE (08:00)
[2018-05-10] MEDS ORDERED: NAPROXEN 500 MG TABLET PO ONE (08:00)
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
--- NOTE | 2018-05-10 08:52 | NUR ---
AMBULATED PT WITH WALKER. PT DID NOT TOLERATE WELL, UNABLE TO MORE THAN THREE STEPS. PT STATES "I CAN'T DO THIS, IT HURTS TOO MUCH."
--- NOTE | 2018-05-10 09:06 | NUR ---
paged dr jaimes [employer] for dr giraldo for dr delvalle.
--- NOTE | 2018-05-10 09:23 | NUR ---
dr jaimes returned call and spoke with tamiko finch
[2018-05-10 09:29] LABS: BASOPHILS # (AUTO) 0.02 x10^3/uL (0-0.1); BASOPHILS % (AUTO) 0 % (0-1); EOSINOPHILS # (AUTO) 0.02 x10^3/uL (0-0.4); EOSINOPHILS % (AUTO) 0 % (1-7); LYMPHOCYTES # (AUTO) 1.21 x10^3/uL (1-3.4); LYMPHOCYTES % (AUTO) 10 % (22-44); MD NO; MEAN CORPUSCULAR HEMOGLOBIN 32.5 pg (27.0-34.8); MEAN CORPUSCULAR HGB CONC 33.5 g/dL (32.4-35.8); MEAN CORPUSCULAR VOLUME 96.9 fL (80-100); MEAN PLATELET VOLUME 8.5 fL (7.4-10.4); MONOCYTES # (AUTO) 0.75 x10^3/uL (0.2-0.8); MONOCYTES % (AUTO) 6 % (2-9); NEUTROPHILS # (AUTO) 10.33 x10^3/uL (1.8-6.8); NEUTROPHILS % (AUTO) 84 % (42-75); PLATELET COUNT 229 x10^3/uL (130-400); RED BLOOD COUNT 4.68 x10^6/uL (3.82-5.3); RED CELL DISTRIBUTION WIDTH 12.5 % (9.6-15.2)
--- NOTE | 2018-05-10 09:35 | NUR ---
lab to redraw pt
[2018-05-10 10:08] LABS: ANION GAP 7 mmol/L (5-15); CALCIUM 9.3 mg/dL (8.5-10.1); CHLORIDE 104 mmol/L (98-107); CREATININE 1.22 mg/dL (0.55-1.02)
[2018-05-10 10:15] VITALS: BP 100/69
[2018-05-10] MEDS ORDERED: GABAPENTIN 300 MG CAPSULE PO PRN (11:00)
[2018-05-10] MEDS ORDERED: BISACODYL 10 MG SUPP PR PRN (11:00)
[2018-05-10] MEDS ORDERED: hydrALAzine 20 MG/ML, 1ML IVPush PRN (11:00)
[2018-05-10] MEDS ORDERED: POLYETHYLENE GLYCOL 17 GM PACKET PO PRN (11:00)
[2018-05-10] MEDS ORDERED: LABETALOL 5MG/ML, 20ML IVPush PRN (11:00)
[2018-05-10] MEDS ORDERED: ACETAMINOPHEN 325 MG TABLET PO PRN (11:00)
[2018-05-10] MEDS ORDERED: morphine SULFATE 10 MG/ML, 1ML IVPush PRN (11:00)
[2018-05-10] MEDS ORDERED: BACLOFEN 10 MG TABLET PO PRN (11:00)
[2018-05-10] MEDS ORDERED: DOCUSATE 100 MG CAPSULE PO PRN (11:00)
[2018-05-10] MEDS: SODIUM CHLORIDE 0.9% 1,000 ML IV SCH (11:50)
[2018-05-10 13:27] VITALS: BP 124/71
[2018-05-10 13:46] VITALS: BP 122/69
[2018-05-10 19:53] VITALS: BP 105/63
[2018-05-10] MEDS: SIMVASTATIN 20 MG TABLET PO SCH (20:49)
[2018-05-11] MEDS: SODIUM CHLORIDE 0.9% 1,000 ML IV SCH ×2 (00:24→13:49)
[2018-05-11 02:35] VITALS: BP 130/78
[2018-05-11 05:32] LABS: BASOPHILS # (AUTO) 0.03 x10^3/uL (0-0.1); BASOPHILS % (AUTO) 0 % (0-1); EOSINOPHILS # (AUTO) 0.16 x10^3/uL (0-0.4); EOSINOPHILS % (AUTO) 2 % (1-7); LYMPHOCYTES % (AUTO) 16 % (22-44); MD NO; MEAN CORPUSCULAR HEMOGLOBIN 33.3 pg (27.0-34.8); MEAN CORPUSCULAR HGB CONC 34.2 g/dL (32.4-35.8); MEAN CORPUSCULAR VOLUME 97.5 fL (80-100); MEAN PLATELET VOLUME 8.5 fL (7.4-10.4); MONOCYTES # (AUTO) 0.85 x10^3/uL (0.2-0.8); MONOCYTES % (AUTO) 10 % (2-9); NEUTROPHILS # (AUTO) 6.17 x10^3/uL (1.8-6.8); NEUTROPHILS % (AUTO) 72 % (42-75); PLATELET COUNT 177 x10^3/uL (130-400); RED BLOOD COUNT 4.27 x10^6/uL (3.82-5.3); RED CELL DISTRIBUTION WIDTH 12.6 % (9.6-15.2)
[2018-05-11 05:36] LABS: ANION GAP 6 mmol/L (5-15); CHLORIDE 105 mmol/L (98-107); CREATININE 0.94 mg/dL (0.55-1.02)
[2018-05-11] MEDS ORDERED: MAGNESIUM SULFATE PMX 2GM/50ML 50 ML IV ONE (07:30)
[2018-05-11 08:00] VITALS: BP 114/73
[2018-05-11] MEDS: MULTIVITAMIN 1 TABLET PO SCH (08:12)
[2018-05-11] MEDS: FLUOXETINE HCL 20 MG CAPSULE PO SCH (08:13)
[2018-05-11] MEDS ORDERED: ENOXAPARIN 30 MG/0.3 ML SQ SCH (10:00)
[2018-05-11 14:21] VITALS: BP 116/73
[2018-05-11 19:41] VITALS: BP 116/71
[2018-05-11] MEDS: SIMVASTATIN 20 MG TABLET PO SCH (22:48)
[2018-05-12 01:23] VITALS: BP 126/76
[2018-05-12] MEDS: SODIUM CHLORIDE 0.9% 1,000 ML IV SCH (03:50)
[2018-05-12 06:17] LABS: CHLORIDE 105 mmol/L (98-107)
[2018-05-12 06:20] LABS: ANION GAP 8 mmol/L (5-15); CALCIUM 8.2 mg/dL (8.5-10.1); CREATININE 0.86 mg/dL (0.55-1.02)
[2018-05-12 07:05] VITALS: BP 143/81
[2018-05-12] MEDS: MULTIVITAMIN 1 TABLET PO SCH (08:17)
[2018-05-12] MEDS: FLUOXETINE HCL 20 MG CAPSULE PO SCH (08:17)
[2018-05-12] MEDS ORDERED: ENOXAPARIN 40 MG/0.4 ML SQ SCH (10:00)
[2018-05-12] MEDS ORDERED: ENOX40SY4 SQ (13:28)
== END 2018-05-12 15:10 | DRG 563 ==
LOC: ED 05:52 → EDIP 09:30 → 4NOR 10:02
PROVIDERS: ADMIT Hospitalist; ATTEND Hospitalist
DX: S82.832A Other fracture of upper and lower end of left fibula, initial encounter for closed fracture (principal); M97.12XA Periprosthetic fracture around internal prosthetic left knee joint, initial encounter; E87.1 Hypo-osmolality and hyponatremia; N17.9 Acute kidney failure, unspecified; Y92.89 Other specified places as the place of occurrence of the external cause; N18.9 Chronic kidney disease, unspecified; I12.9 Hypertensive chronic kidney disease with stage 1 through stage 4 chronic kidney disease, or unspecified chronic kidney disease; W18.30XA Fall on same level, unspecified, initial encounter; M81.0 Age-related osteoporosis without current pathological fracture; E11.22 Type 2 diabetes mellitus with diabetic chronic kidney disease; E66.01 Morbid (severe) obesity due to excess calories; Z68.38 Body mass index [BMI] 38.0-38.9, adult; E78.5 Hyperlipidemia, unspecified; E83.42 Hypomagnesemia; G47.30 Sleep apnea, unspecified; Z66 Do not resuscitate; Z88.2 Allergy status to sulfonamides; Y93.89 Activity, other specified
CPT/HCPCS: 36415; 80048; 83735; 84100; 85025; 99285; G0378; J1650; J3475; J7030

== ENCOUNTER 2018-08-11 19:35 | Emergency (ER) | payer OTHER ==
[~2018-08-11] VITALS: Ht 170.2 cm; Wt 101.7 kg
[~2018-08-11 19:35] MED LIST changes: -ALEN70TA5 PO; +ALEN70TA6 PO; +ENOX40SY4 SQ; -MULT-224 PO; +MULT-642 PO; +SIMV5TAB14 PO; -SIMV5TAB5 PO
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
--- NOTE | 2018-08-11 20:01 | NUR ---
DR ROSA IN ROOM
--- NOTE | 2018-08-11 20:34 | NUR ---
PT RESTING IN ROOM. DAUGHTER IN ROOM. CALL LIGHT IN PLACE. WILL CONTINUE TO MONITOR.
[2018-08-11 21:05] VITALS: BP 116/67
== END 2018-08-11 21:07 | disposition home or self-care (01) ==
LOC: ED 20:12
DX: S06.0X0A Concussion without loss of consciousness, initial encounter (principal); S52.501A Unspecified fracture of the lower end of right radius, initial encounter for closed fracture; S00.83XA Contusion of other part of head, initial encounter; I10 Essential (primary) hypertension; E11.9 Type 2 diabetes mellitus without complications; E78.5 Hyperlipidemia, unspecified; Z90.710 Acquired absence of both cervix and uterus; W01.0XXA Fall on same level from slipping, tripping and stumbling without subsequent striking against object, initial encounter; Y93.89 Activity, other specified; Y92.410 Unspecified street and highway as the place of occurrence of the external cause; Y99.8 Other external cause status
CPT/HCPCS: 70450; 99284

== ENCOUNTER → 2018-09-29 | Outpatient (CLI) | payer OTHER | END | disposition home or self-care (01) | LOC: CFH 14:43 | PROVIDERS: ATTEND Orthopaedic Surgery | DX: S52.591A Other fractures of lower end of right radius, initial encounter for closed fracture (principal); S52.601A Unspecified fracture of lower end of right ulna, initial encounter for closed fracture; X58.XXXA Exposure to other specified factors, initial encounter; Y93.89 Activity, other specified; Y92.89 Other specified places as the place of occurrence of the external cause; Y99.8 Other external cause status ==

== ENCOUNTER 2018-10-10 06:57 | Day surgery (SDC) | payer OTHER ==
[~2018-10-10] VITALS: Ht 170.2 cm; Wt 97.9 kg
[~2018-10-10 06:57] MED LIST changes: +ASPI325T17 PO; +BUPIVACAINE/PF 0.5% ONE
[2018-10-10] MEDS ORDERED: LACTATED RINGERS 1,000 ML IV SCH (07:17)
[2018-10-10] MEDS ORDERED: GABAPENTIN 300 MG CAPSULE PO ONE (07:30)
[2018-10-10] MEDS ORDERED: ACETAMINOPHEN 500 MG TABLET PO ONE (07:30)
[2018-10-10 07:34] VITALS: BP 100/75
[2018-10-10] MEDS ORDERED: FENTANYL PF 100 MCG/2ML IV PRN (09:00)
[2018-10-10] MEDS ORDERED: ONDANSETRON 2MG/ML, 2ML IV PRN (09:00)
[2018-10-10] MEDS ORDERED: BETAMETHASONE 6 MG/ML, 5ML IM ONE (09:00)
[2018-10-10] MEDS ORDERED: OXYcodone 5 MG/5 ML ORAL.SOL UDC PO PRN (09:00)
[2018-10-10] MEDS ORDERED: PROMETHAZINE 25 MG/ML, 1ML IV PRN (09:00)
[2018-10-10] MEDS ORDERED: PROMETHAZINE 25 MG SUPP PR PRN (09:00)
[2018-10-10] MEDS ORDERED: PROMETHAZINE 12.5 MG SUPP PR PRN (09:00)
[2018-10-10] MEDS ORDERED: LABETALOL 5MG/ML, 20ML IV PRN (09:00)
[2018-10-10] MEDS ORDERED: HYDROmorphone 2 MG/ML, 1ML IVPush PRN (09:00)
[2018-10-10] MEDS ORDERED: PROMETHAZINE 25 MG/ML, 1ML IM PRN ×2 (09:00)
[2018-10-10] MEDS ORDERED: hydrALAzine 20 MG/ML, 1ML IV PRN (09:00)
[2018-10-10] MEDS ORDERED: MEPERIDINE/PF 25MG/0.5ML IVPush PRN (09:00)
[2018-10-10] MEDS ORDERED: MORPHINE SULFATE 4 MG/ML, 1ML IVPush PRN (09:00)
[2018-10-10] MEDS ORDERED: ONDANSETRON ODT 8 MG PO PRN (09:00)
[2018-10-10] MEDS ORDERED: PHENYLEPHRINE 10 MG/ML ONE (09:01)
[2018-10-10] MEDS ORDERED: PROPOFOL 10 MG/ML, 20ML ONE (09:01)
[2018-10-10] MEDS ORDERED: ONDANSETRON 2MG/ML, 2ML ONE (09:01)
[2018-10-10] MEDS ORDERED: CEFAZOLIN 1,000 MG ONE (09:01)
[2018-10-10] MEDS ORDERED: OXYcodone 5 MG/5 ML ORAL.SOL UDC ONE (10:35)
[2018-10-10] MEDS ORDERED: MORPHINE SULFATE 4 MG/ML, 1ML ONE (10:37)
[2018-10-10] MEDS ORDERED: FENTANYL PF 100 MCG/2ML ONE (10:43)
== END 2018-10-10 16:15 | disposition home or self-care (01) ==
LOC: OUT 06:57
PROVIDERS: ATTEND Orthopaedic Surgery
DX: S52.501K Unspecified fracture of the lower end of right radius, subsequent encounter for closed fracture with nonunion (principal); T84.192A Other mechanical complication of internal fixation device of bone of right forearm, initial encounter; I10 Essential (primary) hypertension; E11.9 Type 2 diabetes mellitus without complications; E78.5 Hyperlipidemia, unspecified; F32.9 Major depressive disorder, single episode, unspecified; Z79.82 Long term (current) use of aspirin; Z79.899 Other long term (current) drug therapy; Z88.2 Allergy status to sulfonamides; X58.XXXD Exposure to other specified factors, subsequent encounter; Y83.8 Other surgical procedures as the cause of abnormal reaction of the patient, or of later complication, without mention of misadventure at the time of the procedure
CPT/HCPCS: 25405; 73100; 76000; 82962; C1713; C1762; J0690; J0702; J2270; J2370; J2405; J2704; J2710; J3010; J7120; J1100